=== PATIENT | female | born 1955 | race Caucasian/White ===

== ENCOUNTER → 2017-07-20 | Outpatient (CLI) | payer OTHER ==
[~2017-07-20] MED LIST: ASCO10003 PO; ASPI81TA28 PO; BIOT1CAP3 PO; CALC600T PO; COEN1CAP46 PEG; CYAN100020 PO; ERGO500037 PO; LABE200T24 PO; ROSU5TAB PO; VALA500T39 PO
[2017-07-20 09:49] LABS: ESTIMATED AVERAGE GLUCOSE 123 mg/dl; HA1C FLAG Normal (Normal)
[2017-07-20 10:15] LABS: ALT/SGPT 30 U/L (12-78); AST/SGOT 16 U/L (15-37); BLOOD UREA NITROGEN 21 mg/dl (7-18); BUN/CREATININE RATIO 27.1 (10-20); CALCIUM 9.8 mg/dl (8.5-10.1); CARBON DIOXIDE 27 mmol/L (21-32); CHLORIDE 108 mmol/L (98-107); CHOLESTEROL 269 mg/dl (0-200); CREATININE 0.78 mg/dl (0.60-1.20); GLUCOSE 113 mg/dl (70-99); POTASSIUM 4.2 mmol/L (3.5-5.1); SODIUM 142 mmol/L (136-145); TRIGLYCERIDES 185 mg/dl (0-150); VERY LOW DENSITY LIPOPROT CALC 37 mg/dl
[2017-07-20 10:18] LABS: ALB/GLOB RATIO 1.3 (0.9-2); ALKALINE PHOSPHATASE 91 U/L (45-117); CHOLESTEROL/HDL RATIO 6.1; HDL CHOLESTEROL 44 mg/dl; LDL CHOLESTEROL CALCULATED 188 mg/dl
== END | disposition home or self-care (01) ==
LOC: C.LAB 08:45
PROVIDERS: ATTEND Family Medicine
DX: I10 Essential (primary) hypertension (principal); R73.03 Prediabetes; E55.9 Vitamin D deficiency, unspecified; E78.00 Pure hypercholesterolemia, unspecified

== ENCOUNTER → 2017-09-25 | Outpatient (CLI) | payer OTHER ==
--- NOTE | 2017-09-25 15:12 | MAMMOGRAPHY REPORT ---
BILATERAL DIGITAL SCREENING MAMMOGRAM TOMOSYNTHESIS WITH CAD: 09/25/2017 CLINICAL HISTORY: Routine screening. Patient has no complaints. TECHNIQUE: Breast tomosynthesis in addition to standard 2D mammography was performed. Current study was also evaluated with a Computer Aided Detection (CAD) system. COMPARISON: Comparison is made to exams dated: 09/19/2016 mammogram, 09/16/2015 mammogram, 4 mammogram, 09/12/2013 mammogram, 09/11/2012 mammogram, and 09/09/2011 mammogram - [facility]. BREAST COMPOSITION: There are scattered areas of fibroglandular density in both breasts. FINDINGS: There are numerous tiny round and oval circumscribed masses scattered in both breasts, whi ch is a typically benign mammographic pattern. No suspicious spiculated or irregular mass, architectu ral distortion or cluster of new, suspicious microcalcifications is seen. IMPRESSION: ACR BI-RADS CATEGORY 2: BENIGN There is no mammographic evidence of malignancy. A 1 year screening mammogram is recommended. The pa tient will receive written notification of the results. Approximately 10% of breast cancers are not detected with mammography. A negative mammographic report should not delay biopsy if a clinically suggestive mass is present. Sushma Lu M.D. ay/:09/25/2017 09:40:32 [employer]ipe [employer] Supervisor Maintenance: Justa Vang M, [facility] letter sent: Normal 1/2 BI-RADS Code: ACR BI-RADS Category 2: Benign
== END | disposition home or self-care (01) ==
LOC: C.MAMM 08:35
PROVIDERS: ATTEND Family Medicine
DX: Z12.31 Encounter for screening mammogram for malignant neoplasm of breast (principal)

== ENCOUNTER → 2017-11-13 | Outpatient (CLI) | payer OTHER ==
[2017-11-13 10:12] LABS: HEMOGLOBIN A1C 5.9 % (4.5-5.6)
[2017-11-13 10:27] LABS: ALBUMIN 3.9 gm/dl (3.4-5.0); ALT/SGPT 27 U/L (12-78); AST/SGOT 12 U/L (15-37); BLOOD UREA NITROGEN 14 mg/dl (7-18); CALCIUM 9.1 mg/dl (8.5-10.1); CARBON DIOXIDE 28 mmol/L (21-32); CREATININE 0.91 mg/dl (0.60-1.20); GLUCOSE 114 mg/dl (70-99); SODIUM 142 mmol/L (136-145)
[2017-11-13 10:30] LABS: ALKALINE PHOSPHATASE 89 U/L (45-117); CHOLESTEROL 233 mg/dl (0-200); LDL CHOLESTEROL CALCULATED 155 mg/dl
== END | disposition home or self-care (01) ==
LOC: C.LAB 08:01
PROVIDERS: ATTEND Family Medicine
DX: I10 Essential (primary) hypertension (principal); E78.00 Pure hypercholesterolemia, unspecified; R73.03 Prediabetes

== ENCOUNTER → 2017-11-17 | Outpatient (CLI) | payer OTHER ==
--- NOTE | 2017-11-17 11:57 | DIAGNOSTIC IMAGING REPORT ---
LEFT HIP 2 VIEWS HISTORY: Left hip pain. COMPARISON: None. FINDINGS: There is no fracture or dislocation. Soft tissues are unremarkable. The visualized pelvic bones are intact. Mild osteoarthritis within the left hip demonstrated by cartilage space narrowing and marginal osteophytes. IMPRESSION: No fracture or dislocation within the left hip. Mild osteoarthritis. Electronically signed by: Travis Isaac M.D. 11/17/2017 11:56 AM Dictated Date/Time: 11/17/2017 11:54 AM
== END | disposition home or self-care (01) ==
LOC: C.RAD1850 11:12
PROVIDERS: ATTEND Family Medicine
DX: M25.552 Pain in left hip (principal)

== ENCOUNTER → 2018-03-16 | Outpatient (CLI) | payer OTHER ==
[2018-03-16 13:32] LABS: BLOOD UREA NITROGEN 15 mg/dl (7-18); CALCIUM 9.1 mg/dl (8.5-10.1); CARBON DIOXIDE 26 mmol/L (21-32); CREATININE 0.83 mg/dl (0.60-1.20); GLUCOSE 133 mg/dl (70-99); POTASSIUM 4.1 mmol/L (3.5-5.1); SODIUM 142 mmol/L (136-145)
== END | disposition home or self-care (01) ==
LOC: C.LABPVFM 08:12
PROVIDERS: ATTEND Physician Assistant
DX: I10 Essential (primary) hypertension (principal)

== ENCOUNTER → 2018-06-14 | Outpatient (CLI) | payer OTHER ==
[~2018-06-14] MED LIST changes: +COEN1CAP17 PO; -COEN1CAP46 PEG; +EZET10TA47 PO; -LABE200T24 PO; +LABE200T5 PO; -ROSU5TAB PO; -VALA500T39 PO; +VALA500T41 PO
[2018-06-14 13:02] LABS: BASO % 1.2 %; BASO ABS # 0.06 K/uL (0-0.2); EOS ABS # 0.47 K/uL (0-0.5); HEMATOCRIT 42.6 % (37-47); HEMOGLOBIN 14.6 g/dL (12.0-16.0); IG# 0.02 K/uL (0.00-0.02); LYMPH % 37.1 %; LYMPH ABS # 1.93 K/uL (1.2-3.4); MEAN CELL VOLUME 87.3 fL (80-100); MEAN CORPUSCULAR HEMOGLOBIN 29.9 pg (25-34); MEAN CORPUSCULAR HGB CONC 34.3 g/dl (32-36); MEAN PLATELET VOLUME 11.1 fL (7.4-10.4); MONO % 7.9 %; MONO ABS # 0.41 K/uL (0.11-0.59); NEUT % 44.4 %; NEUT ABS # 2.31 K/uL (1.4-6.5); PLATELET COUNT 199 K/uL (130-400); RED CELL DISTRIBUTION WIDTH CV 13.5 % (11.5-14.5)
[2018-06-14 13:14] LABS: HEMOGLOBIN A1C 6.8 % (4.5-5.6)
[2018-06-14 13:37] LABS: ALBUMIN 4.2 gm/dl (3.4-5.0); ALKALINE PHOSPHATASE 98 U/L (45-117); ALT/SGPT 43 U/L (12-78); AST/SGOT 28 U/L (15-37); BLOOD UREA NITROGEN 13 mg/dl (7-18); CARBON DIOXIDE 27 mmol/L (21-32); CREATININE 0.82 mg/dl (0.60-1.20); GLUCOSE 107 mg/dl (70-99); SODIUM 141 mmol/L (136-145); TOTAL PROTEIN 7.4 gm/dl (6.4-8.2)
[2018-06-14 13:38] LABS: T3 FREE 3.23 pg/ml (2.30-4.20)
[2018-06-15 14:10] LABS: ANA SCREEN TC 249X NEGATIVE (NEGATIVE)
== END | disposition home or self-care (01) ==
LOC: C.LAB 12:16
PROVIDERS: ATTEND Family Medicine
DX: R73.03 Prediabetes (principal); M25.50 Pain in unspecified joint